=== PATIENT | female | born 1970 | race Caucasian/White ===

== ENCOUNTER 2016-12-19 08:53 | Emergency (ER) | payer OTHER ==
[2016-12-19 09:04] VITALS: BP 121/78; PULSE 66; RESP 16; TEMP 97.9; O2SAT 100
[2016-12-19 09:20] LABS: COLOR YELLOW; LEUKOCYTE ESTERASE,URINE NEGATIVE (NEGATIVE); NITRITE,URINE NEGATIVE (NEGATIVE); PH,URINE 5.5 (5.0-7.5)
[2016-12-19 09:30] LABS: WBC,URINE 15-25 /hpf (0-3)
--- NOTE | 2016-12-19 09:30 | UCPHY ---
H & P Time Seen by Provider: 12/19/16 09:00 Patient Type: New HPI/ROS: HPI Urinary complaints. 46-year-old female by private vehicle. This patient reports that she has had dysuria, increased frequency with urination and some mild left flank soreness since yesterday. No fever. No other complaints. ROS: Constitutional: No fever, no chills. No weakness. Respiratory: No cough. No shortness of breath. Cardiac: No chest pain, no palpitations. Gastrointestinal: No abdominal pain, no vomiting, no diarrhea. Genitourinary: No hematuria. As above. No vaginal bleeding or vaginal discharge. Musculoskeletal: As above. No myalgias or arthralgias. Neurological: No headache. Past medical history: Cholecystectomy. Social history: Here by herself. Physical Exam: General Appearance: Alert, no distress. This patient is responding to questions appropriately and in full sentences. This patient appears well- hydrated and well-nourished. Eyes: Pupils equal and round no pallor or injection. No lid edema, erythema or injection. Gastrointestinal: Abdomen is soft and nontender, no masses, bowel sounds normal. No focal tenderness at McBurney's point. No Fernandez sign. Neurological: Motor sensory function is grossly intact. Cranial nerves are normal. Gait is normal. Skin: Warm and dry, no rashes. Musculoskeletal: Mild left-sided CVA tenderness on palpation. Extremities are symmetrical. All joints range without pain or impingement. Psychiatric: No agitation. No depression. Database: EKG: Imaging: Procedures: Emergency department course: Urinalysis obtained. Urinalysis indicates infection. Medication allergy history reviewed. Patient started on Keflex at urgent care. She will be prescribed this medication for 7 days for treatment of urinary tract infection. Follow-up and return to Urgent Care precautions discussed. All of her questions were answered. She was discharged in good condition. Differential Diagnosis: The differential diagnosis on this patient includes but is not limited to urinary tract infection, early mild pyelonephritis. Ovarian torsion, STD, other serious bacterial infection unlikely. This represents a partial list of diagnoses considered. These considerations are based on history, physical exam , past history, reassessment and diagnostic testing. Smoking Status: Never smoked Constitutional: Initial Vital Signs Temperature (C) 36.6 C 12/19/16 09:00 Heart Rate 66 12/19/16 09:00 Respiratory Rate 16 12/19/16 09:00 Blood Pressure 121/78 H 12/19/16 09:00 O2 Sat (%) 100 12/19/16 09:00 O2 Delivery Mode Room Air Allergies/Adverse Reactions: codeine [Codeine] Allergy (Verified 03/08/15 05:38) VOMITS Home Medications: Medication Instructions Recorded Bcp Unk Dose 12/19/16 Cephalexin [Keflex (*)] 500 mg PO Q6 7 Days 12/19/16 Mvi Unk Dose 12/19/16 Vit D Unk Dose 12/19/16 Medical Decision Making - Data Points Laboratory Results: 12/19/16 08:58 Urine Color YELLOW Urine Appearance CLEAR Urine pH 5.5 (5.0-7.5) Ur Specific [place] <= 1.005 (1.002-1.030) Urine Protein NEGATIVE (NEGATIVE) Urine Ketones NEGATIVE (NEGATIVE) Urine Blood 2+ H (NEGATIVE) Urine Nitrate NEGATIVE (NEGATIVE) Urine Bilirubin NEGATIVE (NEGATIVE) Urine Urobilinogen 0.2 EU (0.2-1.0) Ur Leukocyte Esterase NEGATIVE (NEGATIVE) Urine RBC 5-10 H /hpf (0-3) Urine WBC 15-25 H /hpf (0-3) Ur Epithelial Cells 1+ /lpf (NONE-1+) Urine Bacteria 1+ H /hpf (NONE SEEN) Ur Culture Indicated? INDICATED H (NI) Urine Glucose NEGATIVE (NEGATIVE) Departure - Departure Disposition: Home, Routine, Self-Care Clinical Impression: Urinary tract infection Instructions: Urinary Tract Infection in Women (ED) Additional Instructions: Read and follow provided instructions. Follow-up with your primary care physician in 1-2 days for re-evaluation As needed. Take medication as prescribed through entire course of treatment. Return to the emergency department for worsening discomfort, back pain, fever, vomiting or other serious concerns. Referrals: [place],. [Primary Care Provider] - As per Instructions Prescriptions: Cephalexin [Keflex (*)] 500 mg PO Q6 7 Days - PQRS PQRS Measurement: Not applicable.
[2016-12-19 09:31] LABS: BACTERIA 1+ /hpf (NONE SEEN)
[2016-12-19] MEDS ORDERED: CEPHALEXIN 500 MG CAP PO ONE (09:37)
== END 2016-12-19 09:53 | disposition home or self-care (01) ==
LOC: CED 08:53
DX: N39.0 Urinary tract infection, site not specified (principal)
CPT/HCPCS: 81003-PO; 81015-PO; 99203-PO; G0463-PO